=== PATIENT | female | born 1945 | race Two or more races ===

== ENCOUNTER 2020-08-08 15:50 | Inpatient (IN) | payer OTHER ==
[~2020-08-08] VITALS: Ht 167.6 cm; Wt 55.6 kg
[2020-08-08] MEDS ORDERED: PANTOPRAZOLE 40 MG/10 ML VIAL INJ IV STA (15:57)
[2020-08-08] MEDS ORDERED: SODIUM CHLORIDE 0.9% 500 ML IVB ONE (16:00)
[2020-08-08 16:56] LABS: Basophils # (auto) 0 10 ^3/uL (0-0.2); Eosinophils # (auto) 0.1 10 ^3/uL (0-0.8); Hematocrit 37.4 % (36.0-46.0); Mean Corpuscular Hemoglobin 35.3 pg (28.0-32.0); Monocytes # (auto) 0.6 10 ^3/uL (0-1.3)
[2020-08-08 16:58] LABS: Basophils % (auto) 0.3 % (0.0-2.0); Eosinophils % (auto) 1.5 % (0.0-7.0); Hemoglobin 12.8 g/dL (12.2-16.2); Lymphocytes # (auto) 0.6 10 ^3/uL (0.4-5.4); Lymphocytes % (auto) 8.3 % (10.0-50.0); Mean Corpuscular Hgb Conc. 34.2 g/dL (32.0-36.0); Mean Corpuscular Volume 103.1 fL (80.0-100.0); Monocytes % (auto) 8.1 % (0.0-12.0); Neutrophils # (auto) 5.5 10 ^3/uL (1.6-8.6); Neutrophils % (auto) 81.8 % (37.0-80.0); Platelet Count (auto) 95 10^3/uL (140-450); Red Blood Cells 3.63 10^6/uL (4.0-5.20); Red Cell Distribution Width 15.3 % (11.8-14.3); White Blood Cell 6.8 10^3/uL (4.4-10.8)
[2020-08-08 17:07] LABS: Calcium 8.5 mg/dL (8.5-10.1)
[2020-08-08 17:10] LABS: Albumin 3.1 g/dL (3.4-5.0); BUN/Creatinine Ratio 16.4
[2020-08-08 17:23] LABS: Bilirubin, Total 0.9 mg/dL (0.2-1.0); Total Protein 6.3 g/dL (6.4-8.2)
[2020-08-08] MEDS ORDERED: metroNIDAZOLE 500MG/100ML 100 ML IV ONE (19:30)
[2020-08-08] MEDS ORDERED: POTASSIUM CHL 20MEQ/100ML 100 ML IV ONE (19:30)
[2020-08-08] MEDS ORDERED: ONDANSETRON HCL 4 MG/2 ML VIAL IV PRN (21:00)
[2020-08-08] MEDS ORDERED: ACETAMINOPHEN 325 MG TAB PO PRN (21:00)
[2020-08-08] MEDS ORDERED: DEXTROSE (50%) 50ML SYRG IV PRN (21:00)
[2020-08-08] MEDS ORDERED: MORPHINE SULF INJ 2 MG/ML SYRINGE 1ML IV PRN (21:00)
[2020-08-08] MEDS ORDERED: SODIUM CHLORIDE 0.9% 1,000 ML IV SCH (21:00)
[2020-08-08] MEDS ORDERED: NITROGLYCERIN 0.4 MG SL TAB SL PRN (21:00)
[2020-08-08] MEDS: INSULIN LANTUS (GLARGINE) 1 /0.01ml (100units/ml) SC SCH (22:00)
[2020-08-08] MEDS: metroNIDAZOLE 500MG/100ML 100 ML IV SCH (22:00)
[2020-08-08] MEDS: InsuLIN REG 1unit/0.01ml Soln (100units/ml) SC SCH (22:00)
[2020-08-08] MEDS ORDERED: GLIP10TA9 PO (22:18)
[2020-08-08] MEDS ORDERED: APIX5TAB PO (22:18)
[2020-08-08] MEDS ORDERED: METF-370 PO (22:18)
[2020-08-08] MEDS: ACCU-CHEK COMFORT CURVE STRIP VI SCH (22:29)
[2020-08-08 23:00] VITALS: BP 117/78
[2020-08-08 23:08] LABS: INR 1.06 (0.9-1.15); Partial Thromboplastin Time 37.7 sec (23.0-31.2)
[2020-08-08] MEDS: MORPHINE SULF INJ 2 MG/ML SYRINGE 1ML IV PRN (23:44)
[2020-08-08] MEDS: cefTRIAXone 1GM/50ML D5W 50 ML IV SCH (23:45)
[2020-08-09 05:00] VITALS: BP 120/67
[2020-08-09] MEDS: metroNIDAZOLE 500MG/100ML 100 ML IV SCH (05:50)
[2020-08-09] MEDS: ACCU-CHEK COMFORT CURVE STRIP VI SCH ×4 (05:58→23:50)
[2020-08-09] MEDS: INSULIN LANTUS (GLARGINE) 1 /0.01ml (100units/ml) SC SCH (05:59)
[2020-08-09] MEDS: InsuLIN REG 1unit/0.01ml Soln (100units/ml) SC SCH ×5 (06:00→23:51)
[2020-08-09 06:11] LABS: Basophils # (auto) 0 10 ^3/uL (0-0.2); Eosinophils # (auto) 0.2 10 ^3/uL (0-0.8); Lymphocytes # (auto) 0.6 10 ^3/uL (0.4-5.4); Monocytes # (auto) 0.7 10 ^3/uL (0-1.3); Monocytes % (auto) 10.1 % (0.0-12.0); Neutrophils # (auto) 5.3 10 ^3/uL (1.6-8.6); White Blood Cell 6.8 10^3/uL (4.4-10.8)
[2020-08-09 06:16] LABS: Basophils % (auto) 0.4 % (0.0-2.0); Eosinophils % (auto) 2.2 % (0.0-7.0); Hematocrit 34.2 % (36.0-46.0); Hemoglobin 11.8 g/dL (12.2-16.2); Lymphocytes % (auto) 9.6 % (10.0-50.0); Mean Corpuscular Hemoglobin 35.6 pg (28.0-32.0); Mean Corpuscular Hgb Conc. 34.6 g/dL (32.0-36.0); Neutrophils % (auto) 77.7 % (37.0-80.0); Nucleated Red Blood Cells % 0.1 %; Platelet Count (auto) 102 10^3/uL (140-450); Red Blood Cells 3.32 10^6/uL (4.0-5.20); Red Cell Distribution Width 15.9 % (11.8-14.3)
[2020-08-09] MEDS ORDERED: D5W/SOD CHLO 0.9% 1,000 ML IV SCH (06:30)
[2020-08-09 06:33] LABS: Potassium 3.2 mmol/L (3.5-5.1)
[2020-08-09 06:43] LABS: Albumin 3.2 g/dL (3.4-5.0); Bilirubin, Total 0.7 mg/dL (0.2-1.0); Calcium 7.8 mg/dL (8.5-10.1)
[2020-08-09] MEDS ORDERED: LIDOCAINE HCL 2% TOP JELLY 5ML TOP ONE (07:30)
[2020-08-09] MEDS: MORPHINE SULF INJ 2 MG/ML SYRINGE 1ML IV PRN (07:36)
[2020-08-09 08:00] VITALS: BP 111/69
[2020-08-09 08:18] LABS: Urine Bacteria NONE SEEN /hpf (None Seen); Urine Blood 3+ /uL (Negative); Urine Specific Gravity 1.017 (1.001-1.035)
[2020-08-09 08:22] LABS: Urine WBC 2 /hpf (0 - 5)
[2020-08-09 09:00] VITALS: BP 111/63
[2020-08-09] MEDS: PANTOPRAZOLE 40 MG/10 ML VIAL INJ IV SCH (09:35)
[2020-08-09] MEDS: cefTRIAXone 1GM/50ML D5W 50 ML IV SCH (09:35)
[2020-08-09] MEDS ORDERED: APIXABAN 5 MG TAB PO SCH (10:00)
[2020-08-09] MEDS: D5W/SOD CHLO 0.9% 1,000 ML IV SCH ×2 (10:19→20:00)
[2020-08-09] MEDS ORDERED: DEXTROSE (50%) 50ML SYRG IV PRN (12:30)
[2020-08-09] MEDS ORDERED: POTASSIUM CHLORIDE 40 MEQ, LIDOCAINE 1% (LOCAL ANESTH.) 4 ML in SODIUM CHL 0.9% 100 ML IV ONE (12:30)
[2020-08-09 12:32] VITALS: BP 116/72
[2020-08-09] MEDS ORDERED: PIPERACILLIN-TAZOB 3.375GM 100 ML IV SCH (14:00)
[2020-08-09] MEDS ORDERED: LEVOTHYROXINE SODIUM 100 MCG/5 ML INJ IV ONE (15:00)
[2020-08-09] MEDS ORDERED: DOCUSATE SOD 100 MG CAP PO PRN (16:15)
[2020-08-09 17:03] VITALS: BP 115/70
[2020-08-09] MEDS: PIPERACILLIN-TAZOB 2.25GM 50 ML IV SCH (21:29)
[2020-08-09 22:41] VITALS: BP 110/59
[2020-08-10] MEDS: D5W/SOD CHLO 0.9% 1,000 ML IV SCH ×2 (05:36→16:16)
[2020-08-10] MEDS: PIPERACILLIN-TAZOB 2.25GM 50 ML IV SCH ×3 (05:36→20:59)
[2020-08-10] MEDS: ACCU-CHEK COMFORT CURVE STRIP VI SCH ×4 (05:44→23:24)
[2020-08-10] MEDS: InsuLIN REG 1unit/0.01ml Soln (100units/ml) SC SCH ×4 (05:47→23:27)
[2020-08-10 05:48] VITALS: BP 118/64
[2020-08-10 05:58] LABS: Basophils # (auto) 0 10 ^3/uL (0-0.2); Basophils % (auto) 0.4 % (0.0-2.0); Eosinophils # (auto) 0.2 10 ^3/uL (0-0.8); Monocytes # (auto) 0.6 10 ^3/uL (0-1.3); Neutrophils # (auto) 4.2 10 ^3/uL (1.6-8.6)
[2020-08-10 06:02] LABS: Eosinophils % (auto) 3.9 % (0.0-7.0); Hematocrit 35.8 % (36.0-46.0); Hemoglobin 12.4 g/dL (12.2-16.2); Lymphocytes # (auto) 0.7 10 ^3/uL (0.4-5.4); Lymphocytes % (auto) 11.3 % (10.0-50.0); Mean Corpuscular Hemoglobin 35.6 pg (28.0-32.0); Mean Corpuscular Hgb Conc. 34.7 g/dL (32.0-36.0); Mean Corpuscular Volume 102.6 fL (80.0-100.0); Monocytes % (auto) 10.6 % (0.0-12.0); Neutrophils % (auto) 73.8 % (37.0-80.0); Platelet Count (auto) 102 10^3/uL (140-450); Red Blood Cells 3.49 10^6/uL (4.0-5.20); Red Cell Distribution Width 15.3 % (11.8-14.3); White Blood Cell 5.8 10^3/uL (4.4-10.8)
[2020-08-10 06:12] LABS: Calcium 8.2 mg/dL (8.5-10.1)
[2020-08-10 06:18] LABS: Albumin 2.6 g/dL (3.4-5.0); BUN/Creatinine Ratio 15.5; Bilirubin, Total 0.5 mg/dL (0.2-1.0); Total Protein 5.8 g/dL (6.4-8.2)
[2020-08-10 06:28] LABS: Potassium 2.9 mmol/L (3.5-5.1)
[2020-08-10] MEDS ORDERED: POTASSIUM EFFERVESENT TAB 25 MEQ PO ONE (08:30)
[2020-08-10 09:09] VITALS: BP 109/59
[2020-08-10] MEDS: LEVOTHYROXINE SODIUM 100 MCG/5 ML INJ IV SCH (09:50)
[2020-08-10] MEDS: PANTOPRAZOLE 40 MG/10 ML VIAL INJ IV SCH (09:50)
[2020-08-10 13:00] VITALS: BP 123/85
[2020-08-10 17:00] VITALS: BP 111/61
[2020-08-10] MEDS: MORPHINE SULF INJ 2 MG/ML SYRINGE 1ML IV PRN (20:59)
[2020-08-10 21:46] VITALS: BP 124/74
[2020-08-11] MEDS: PIPERACILLIN-TAZOB 2.25GM 50 ML IV SCH ×4 (01:29→21:38)
[2020-08-11] MEDS: D5W/SOD CHLO 0.9% 1,000 ML IV SCH (01:29)
[2020-08-11 05:19] VITALS: BP 118/69
[2020-08-11] MEDS: ACCU-CHEK COMFORT CURVE STRIP VI SCH ×3 (05:41→17:26)
[2020-08-11] MEDS: MORPHINE SULF INJ 2 MG/ML SYRINGE 1ML IV PRN (05:42)
[2020-08-11] MEDS: InsuLIN REG 1unit/0.01ml Soln (100units/ml) SC SCH ×3 (05:56→17:26)
[2020-08-11 08:00] VITALS: BP 117/72
[2020-08-11 08:36] VITALS: BP 117/72
[2020-08-11] MEDS: LEVOTHYROXINE SODIUM 100 MCG/5 ML INJ IV SCH (09:56)
[2020-08-11] MEDS: PANTOPRAZOLE 40 MG/10 ML VIAL INJ IV SCH (09:56)
[2020-08-11 13:00] VITALS: BP 109/62
[2020-08-11 17:00] VITALS: BP 105/82
[2020-08-11 22:00] VITALS: BP 102/66
[2020-08-12] MEDS: ACCU-CHEK COMFORT CURVE STRIP VI SCH ×4 (00:15→18:08)
[2020-08-12] MEDS: InsuLIN REG 1unit/0.01ml Soln (100units/ml) SC SCH ×4 (00:15→18:11)
[2020-08-12] MEDS: PIPERACILLIN-TAZOB 2.25GM 50 ML IV SCH ×4 (02:34→21:26)
[2020-08-12 05:00] VITALS: BP 113/72
[2020-08-12] MEDS: LEVOTHYROXINE SODIUM 100 MCG/5 ML INJ IV SCH (08:23)
[2020-08-12] MEDS: PANTOPRAZOLE 40 MG/10 ML VIAL INJ IV SCH (08:23)
[2020-08-12 09:00] VITALS: BP 116/71
[2020-08-12 13:00] VITALS: BP 121/60
[2020-08-12 17:23] VITALS: BP 111/65
[2020-08-12 21:49] VITALS: BP 116/74
[2020-08-13] MEDS: PIPERACILLIN-TAZOB 2.25GM 50 ML IV SCH ×2 (01:26→08:23)
[2020-08-13 05:23] VITALS: BP 135/83
[2020-08-13] MEDS: InsuLIN REG 1unit/0.01ml Soln (100units/ml) SC SCH ×4 (06:00→17:41)
[2020-08-13] MEDS: ACCU-CHEK COMFORT CURVE STRIP VI SCH ×4 (06:00→17:32)
[2020-08-13 09:00] VITALS: BP 136/62
[2020-08-13] MEDS: PANTOPRAZOLE 40 MG/10 ML VIAL INJ IV SCH (09:36)
[2020-08-13] MEDS: LEVOTHYROXINE SODIUM 100 MCG/5 ML INJ IV SCH (09:36)
[2020-08-13 13:00] VITALS: BP 138/73
[2020-08-13] MEDS: PIPERACILLIN-TAZOB 3.375GM 100 ML IV SCH ×2 (13:16→17:32)
[2020-08-13 16:31] LABS: Urine Bacteria NONE SEEN /hpf (None Seen); Urine Blood TRACE /uL (Negative); Urine Mucus FEW (None Seen); Urine Specific Gravity 1.014 (1.001-1.035); Urine WBC 5 /hpf (0 - 5)
[2020-08-13 16:52] VITALS: BP 132/70
[2020-08-13 22:00] VITALS: BP 119/59
[2020-08-14] MEDS: PIPERACILLIN-TAZOB 3.375GM 100 ML IV SCH ×5 (02:06→23:05)
[2020-08-14 05:30] VITALS: BP 129/67
[2020-08-14] MEDS: ACCU-CHEK COMFORT CURVE STRIP VI SCH ×4 (06:00→18:06)
[2020-08-14] MEDS: InsuLIN REG 1unit/0.01ml Soln (100units/ml) SC SCH ×4 (06:00→18:07)
[2020-08-14 06:25] LABS: Basophils # (auto) 0 10 ^3/uL (0-0.2); Basophils % (auto) 0.3 % (0.0-2.0); Eosinophils # (auto) 0.1 10 ^3/uL (0-0.8); Eosinophils % (auto) 1.8 % (0.0-7.0); Lymphocytes # (auto) 1.1 10 ^3/uL (0.4-5.4); Nucleated Red Blood Cells % 0.1 %
[2020-08-14 06:27] LABS: Hematocrit 34.1 % (36.0-46.0); Hemoglobin 11.9 g/dL (12.2-16.2); Lymphocytes % (auto) 15.3 % (10.0-50.0); Mean Corpuscular Hemoglobin 34.8 pg (28.0-32.0); Mean Corpuscular Hgb Conc. 34.9 g/dL (32.0-36.0); Mean Corpuscular Volume 99.6 fL (80.0-100.0); Monocytes # (auto) 0.5 10 ^3/uL (0-1.3); Monocytes % (auto) 7.3 % (0.0-12.0); Neutrophils # (auto) 5.4 10 ^3/uL (1.6-8.6); Neutrophils % (auto) 75.3 % (37.0-80.0); Platelet Count (auto) 136 10^3/uL (140-450); Red Blood Cells 3.43 10^6/uL (4.0-5.20); Red Cell Distribution Width 15.1 % (11.8-14.3); White Blood Cell 7.2 10^3/uL (4.4-10.8)
[2020-08-14 06:48] LABS: Albumin 2.7 g/dL (3.4-5.0); BUN/Creatinine Ratio 11.3; Bilirubin, Total 0.6 mg/dL (0.2-1.0); Calcium 7.6 mg/dL (8.5-10.1); Total Protein 5.8 g/dL (6.4-8.2)
[2020-08-14 07:37] LABS: Potassium 1.8 mmol/L (3.5-5.1)
[2020-08-14] MEDS ORDERED: POTASSIUM CHL 20 Meq TABLET PO ONE ×2 (08:00→16:00)
[2020-08-14] MEDS ORDERED: POTASSIUM EFFERVESENT TAB 25 MEQ PO ONE (08:15)
[2020-08-14] MEDS ORDERED: POTASSIUM CHL 20MEQ/100ML 100 ML IV ONE (08:15)
[2020-08-14 08:46] VITALS: BP 163/88
[2020-08-14] MEDS: PANTOPRAZOLE 40 MG/10 ML VIAL INJ IV SCH (09:12)
[2020-08-14] MEDS: LEVOTHYROXINE SODIUM 100 MCG/5 ML INJ IV SCH (09:12)
[2020-08-14] MEDS: MORPHINE SULF INJ 2 MG/ML SYRINGE 1ML IV PRN (09:12)
[2020-08-14 13:00] VITALS: BP 126/80
[2020-08-14] MEDS ORDERED: MAGNESIUM OXIDE 400 MG TAB PO ONE (15:00)
[2020-08-14] MEDS: MAGNESIUM SULFATE 1GM/100ML 100 ML IV SCH ×2 (15:29→16:38)
[2020-08-14 17:00] VITALS: BP 139/81
[2020-08-14 22:00] VITALS: BP 114/63
[2020-08-15] MEDS: PIPERACILLIN-TAZOB 3.375GM 100 ML IV SCH ×4 (05:31→23:31)
[2020-08-15] MEDS: InsuLIN REG 1unit/0.01ml Soln (100units/ml) SC SCH ×5 (05:32→23:42)
[2020-08-15] MEDS: ACCU-CHEK COMFORT CURVE STRIP VI SCH ×5 (06:20→23:42)
[2020-08-15 06:58] LABS: Calcium 7.7 mg/dL (8.5-10.1); Magnesium 2.6 mg/dL (1.6-2.6)
[2020-08-15 07:00] LABS: Potassium 2.8 mmol/L (3.5-5.1)
[2020-08-15] MEDS ORDERED: POTASSIUM CHL 20 Meq TABLET PO ONE ×3 (07:30→17:00)
[2020-08-15 08:00] VITALS: BP 141/92
[2020-08-15 08:16] LABS: BUN/Creatinine Ratio 10.4
[2020-08-15] MEDS ORDERED: POTASSIUM EFFERVESENT TAB 25 MEQ PO ONE (09:15)
[2020-08-15] MEDS: POTASSIUM CHLORIDE 40 MEQ, LIDOCAINE 1% (LOCAL ANESTH.) 4 ML in SODIUM CHL 0.9% 100 ML IV ONE ×2 (09:15→09:57)
[2020-08-15] MEDS: MORPHINE SULF INJ 2 MG/ML SYRINGE 1ML IV PRN ×2 (09:55→21:18)
[2020-08-15] MEDS: PANTOPRAZOLE 40 MG/10 ML VIAL INJ IV SCH (09:55)
[2020-08-15] MEDS: MAGNESIUM OXIDE 400 MG TAB PO SCH (09:55)
[2020-08-15] MEDS ORDERED: SPIRONOLACTONE 25 MG TAB PO SCH (10:00)
[2020-08-15] MEDS: LEVOTHYROXINE SODIUM 100 MCG/5 ML INJ IV SCH (10:00)
[2020-08-15 11:12] LABS: Urine Bacteria FEW /hpf (None Seen); Urine Blood 3+ /uL (Negative); Urine Mucus FEW (None Seen); Urine Specific Gravity 1.016 (1.001-1.035); Urine WBC 76 /hpf (0 - 5)
[2020-08-15 11:30] LABS: Creatinine, Urine 56 mg/dL (30.0-125.0); Sodium Urine 75 mmol/L (40-220)
[2020-08-15] MEDS ORDERED: METR500T PO (12:35)
[2020-08-15] MEDS ORDERED: SPIR25TA88 PO ×2 (12:35→17:40)
[2020-08-15] MEDS ORDERED: LEVO150T68 PO (12:35)
[2020-08-15] MEDS ORDERED: MAGN400T21 PO (12:35)
[2020-08-15] MEDS ORDERED: APIX5TAB PO (12:35)
[2020-08-15] MEDS ORDERED: LEVO500T21 PO (12:35)
[2020-08-15] MEDS ORDERED: POTA10TA32 PO (12:35)
[2020-08-15 13:00] VITALS: BP 111/63
[2020-08-15 17:00] VITALS: BP 113/84
[2020-08-15] MEDS ORDERED: SODIUM CHLORIDE 0.9% 500 ML IV ONE (21:15)
[2020-08-15] MEDS ORDERED: FUROSEMIDE 40 MG/4 ML VIAL IV ONE (21:15)
[2020-08-15 22:00] VITALS: BP 117/81
[2020-08-16] MEDS: MORPHINE SULF INJ 2 MG/ML SYRINGE 1ML IV PRN (03:47)
[2020-08-16 05:00] VITALS: BP 139/83
[2020-08-16] MEDS: InsuLIN REG 1unit/0.01ml Soln (100units/ml) SC SCH ×3 (05:56→18:00)
[2020-08-16] MEDS: PIPERACILLIN-TAZOB 3.375GM 100 ML IV SCH ×2 (05:57→12:00)
[2020-08-16] MEDS: ACCU-CHEK COMFORT CURVE STRIP VI SCH ×3 (05:57→18:00)
[2020-08-16 07:24] LABS: Monocytes % (auto) 8.4 % (0.0-12.0); Neutrophils # (auto) 9.6 10 ^3/uL (1.6-8.6); White Blood Cell 11.4 10^3/uL (4.4-10.8)
[2020-08-16 07:26] LABS: Basophils # (auto) 0 10 ^3/uL (0-0.2); Basophils % (auto) 0.4 % (0.0-2.0); Eosinophils # (auto) 0.2 10 ^3/uL (0-0.8); Eosinophils % (auto) 1.4 % (0.0-7.0); Hematocrit 38.2 % (36.0-46.0); Hemoglobin 12.8 g/dL (12.2-16.2); Lymphocytes # (auto) 0.6 10 ^3/uL (0.4-5.4); Lymphocytes % (auto) 5.6 % (10.0-50.0); Mean Corpuscular Hemoglobin 34.4 pg (28.0-32.0); Mean Corpuscular Hgb Conc. 33.4 g/dL (32.0-36.0); Neutrophils % (auto) 84.2 % (37.0-80.0); Platelet Count (auto) 138 10^3/uL (140-450); Red Blood Cells 3.71 10^6/uL (4.0-5.20); Red Cell Distribution Width 15.7 % (11.8-14.3)
[2020-08-16 07:39] LABS: BUN/Creatinine Ratio 8.7; Calcium 8.4 mg/dL (8.5-10.1); Potassium 5.3 mmol/L (3.5-5.1)
[2020-08-16 09:00] VITALS: BP 100/54
[2020-08-16] MEDS ORDERED: SODIUM BICARBONATE 8.4 % INJ 50ML VIAL IV ONE (09:15)
[2020-08-16] MEDS: MAGNESIUM OXIDE 400 MG TAB PO SCH (10:50)
[2020-08-16] MEDS: ENOXAPARIN SOD 60 MG/0.6 ML SYRINGE SC SCH (10:50)
[2020-08-16] MEDS: LEVOTHYROXINE SODIUM 100 MCG/5 ML INJ IV SCH (10:50)
[2020-08-16] MEDS: PANTOPRAZOLE 40 MG/10 ML VIAL INJ IV SCH (10:50)
[2020-08-16] MEDS: METOPROLOL TARTRATE 25 MG TAB PO SCH ×2 (10:51→21:39)
[2020-08-16 13:00] VITALS: BP 114/59
[2020-08-16] MEDS ORDERED: cefTRIAXone 1GM/50ML D5W 50 ML IV ONE (13:45)
[2020-08-16] MEDS: metroNIDAZOLE 500MG/100ML 100 ML IV SCH ×2 (16:36→21:39)
[2020-08-16 17:00] VITALS: BP 109/67
[2020-08-16] MEDS ORDERED: LORazepam 2MG/ML-1ML VIAL IV PRN (20:00)
[2020-08-16] MEDS: LACTULOSE 20Gm/30ML SOLN PO SCH (21:39)
[2020-08-16 22:00] VITALS: BP 113/67
[2020-08-17] MEDS: ACCU-CHEK COMFORT CURVE STRIP VI SCH ×4 (00:22→18:14)
[2020-08-17 05:00] VITALS: BP 115/85
[2020-08-17] MEDS: metroNIDAZOLE 500MG/100ML 100 ML IV SCH ×3 (05:48→22:10)
[2020-08-17] MEDS: InsuLIN REG 1unit/0.01ml Soln (100units/ml) SC SCH ×4 (06:00→18:00)
[2020-08-17 06:48] LABS: Basophils # (auto) 0.1 10 ^3/uL (0-0.2); Basophils % (auto) 0.6 % (0.0-2.0); Eosinophils # (auto) 0.2 10 ^3/uL (0-0.8); Eosinophils % (auto) 2.6 % (0.0-7.0); Hemoglobin 12.5 g/dL (12.2-16.2); Monocytes # (auto) 0.6 10 ^3/uL (0-1.3)
[2020-08-17 06:50] LABS: Hematocrit 36.6 % (36.0-46.0); Lymphocytes # (auto) 0.9 10 ^3/uL (0.4-5.4); Lymphocytes % (auto) 10.5 % (10.0-50.0); Mean Corpuscular Hemoglobin 35.3 pg (28.0-32.0); Mean Corpuscular Hgb Conc. 34.2 g/dL (32.0-36.0); Mean Corpuscular Volume 103.2 fL (80.0-100.0); Monocytes % (auto) 7.2 % (0.0-12.0); Neutrophils # (auto) 6.7 10 ^3/uL (1.6-8.6); Neutrophils % (auto) 79.1 % (37.0-80.0); Nucleated Red Blood Cells % 0.1 %; Platelet Count (auto) 140 10^3/uL (140-450); Red Blood Cells 3.54 10^6/uL (4.0-5.20); Red Cell Distribution Width 15.9 % (11.8-14.3); White Blood Cell 8.4 10^3/uL (4.4-10.8)
[2020-08-17 07:06] LABS: BUN/Creatinine Ratio 10.8; Calcium 8.4 mg/dL (8.5-10.1); Potassium 4.2 mmol/L (3.5-5.1)
[2020-08-17 08:00] VITALS: BP 111/61
[2020-08-17] MEDS: LACTULOSE 20Gm/30ML SOLN PO SCH ×2 (09:35→22:10)
[2020-08-17] MEDS: ENOXAPARIN SOD 60 MG/0.6 ML SYRINGE SC SCH (09:36)
[2020-08-17] MEDS: cefTRIAXone 1GM/50ML D5W 50 ML IV SCH (09:36)
[2020-08-17] MEDS: MAGNESIUM OXIDE 400 MG TAB PO SCH (09:36)
[2020-08-17] MEDS: PANTOPRAZOLE 40 MG/10 ML VIAL INJ IV SCH (09:36)
[2020-08-17] MEDS: LEVOTHYROXINE SODIUM 100 MCG/5 ML INJ IV SCH (09:37)
[2020-08-17] MEDS: METOPROLOL TARTRATE 25 MG TAB PO SCH ×2 (09:37→22:10)
[2020-08-17] MEDS ORDERED: SODIUM CHLORIDE 0.9% 1,000 ML IV SCH (11:45)
[2020-08-17] MEDS: SOD CHL 0.45% 1,000 ML IV SCH (11:45)
[2020-08-17 13:02] VITALS: BP 142/71
[2020-08-17] MEDS ORDERED: GASTROGRAFIN 30 ML SOL ONE (14:51)
[2020-08-17] MEDS: MORPHINE SULF INJ 2 MG/ML SYRINGE 1ML IV PRN ×2 (16:49→22:10)
[2020-08-17 17:14] VITALS: BP 117/72
[2020-08-17 22:00] VITALS: BP 140/85
[2020-08-17] MEDS: GABAPENTIN 100 MG CAP PO SCH (22:10)
[2020-08-18] MEDS: SOD CHL 0.45% 1,000 ML IV SCH (01:05)
[2020-08-18 05:00] VITALS: BP 104/63
[2020-08-18] MEDS: ACCU-CHEK COMFORT CURVE STRIP VI SCH ×4 (05:41→17:28)
[2020-08-18] MEDS: InsuLIN REG 1unit/0.01ml Soln (100units/ml) SC SCH ×4 (05:41→17:28)
[2020-08-18] MEDS: metroNIDAZOLE 500MG/100ML 100 ML IV SCH ×3 (05:52→22:00)
[2020-08-18 07:06] LABS: Magnesium 2.4 mg/dL (1.6-2.6)
[2020-08-18 08:33] VITALS: BP 109/70
[2020-08-18] MEDS: MAGNESIUM OXIDE 400 MG TAB PO SCH (09:49)
[2020-08-18] MEDS: ASPirin 325 MG TAB PO SCH (09:49)
[2020-08-18] MEDS: PANTOPRAZOLE 40 MG/10 ML VIAL INJ IV SCH (09:50)
[2020-08-18] MEDS: LEVOTHYROXINE SODIUM 100 MCG/5 ML INJ IV SCH (09:50)
[2020-08-18] MEDS: ENOXAPARIN SOD 60 MG/0.6 ML SYRINGE SC SCH (09:50)
[2020-08-18] MEDS: GABAPENTIN 100 MG CAP PO SCH (09:50)
[2020-08-18] MEDS: METOPROLOL TARTRATE 25 MG TAB PO SCH ×2 (09:51→22:00)
[2020-08-18] MEDS: cefTRIAXone 1GM/50ML D5W 50 ML IV SCH (09:51)
[2020-08-18] MEDS: LACTULOSE 20Gm/30ML SOLN PO SCH (09:51)
[2020-08-18 13:12] VITALS: BP 120/70
[2020-08-18 17:00] VITALS: BP 130/69
[2020-08-18 21:00] VITALS: BP 106/59
[2020-08-19 05:00] VITALS: BP 100/59
[2020-08-19] MEDS: metroNIDAZOLE 500MG/100ML 100 ML IV SCH ×3 (05:52→22:58)
[2020-08-19] MEDS: ACCU-CHEK COMFORT CURVE STRIP VI SCH ×4 (05:53→17:40)
[2020-08-19] MEDS: InsuLIN REG 1unit/0.01ml Soln (100units/ml) SC SCH ×4 (05:53→17:40)
[2020-08-19 06:35] LABS: BUN/Creatinine Ratio 15.2; Calcium 7.9 mg/dL (8.5-10.1)
[2020-08-19 06:37] LABS: Potassium 2.9 mmol/L (3.5-5.1)
[2020-08-19] MEDS ORDERED: POTASSIUM CHL 20 Meq TABLET PO ONE ×2 (07:00→10:00)
[2020-08-19 08:00] VITALS: BP 106/64
[2020-08-19 09:00] VITALS: BP 106/64
[2020-08-19 09:35] LABS: Folate (Folic Acid) 14.03 ng/mL (5.38-24)
[2020-08-19] MEDS: cefTRIAXone 1GM/50ML D5W 50 ML IV SCH (09:57)
[2020-08-19] MEDS: ASPirin 325 MG TAB PO SCH (10:33)
[2020-08-19] MEDS: PANTOPRAZOLE 40 MG/10 ML VIAL INJ IV SCH (10:33)
[2020-08-19] MEDS: ENOXAPARIN SOD 60 MG/0.6 ML SYRINGE SC SCH ×2 (10:34→22:57)
[2020-08-19] MEDS: METOPROLOL TARTRATE 25 MG TAB PO SCH ×2 (10:34→22:58)
[2020-08-19 13:00] VITALS: BP 94/65
[2020-08-19 17:00] VITALS: BP 116/59
[2020-08-19 22:00] VITALS: BP 109/65
[2020-08-19] MEDS: MORPHINE SULF INJ 2 MG/ML SYRINGE 1ML IV PRN (23:47)
[2020-08-20] MEDS: InsuLIN REG 1unit/0.01ml Soln (100units/ml) SC SCH ×3 (00:43→11:47)
[2020-08-20 05:00] VITALS: BP 109/67
[2020-08-20] MEDS: metroNIDAZOLE 500MG/100ML 100 ML IV SCH ×2 (06:00→14:00)
[2020-08-20] MEDS: ACCU-CHEK COMFORT CURVE STRIP VI SCH ×3 (06:00→11:45)
[2020-08-20 06:40] LABS: Basophils # (auto) 0 10 ^3/uL (0-0.2); Eosinophils # (auto) 0.1 10 ^3/uL (0-0.8); Eosinophils % (auto) 0.9 % (0.0-7.0); Lymphocytes # (auto) 0.7 10 ^3/uL (0.4-5.4); Mean Corpuscular Hgb Conc. 34.7 g/dL (32.0-36.0); Monocytes # (auto) 0.7 10 ^3/uL (0-1.3); Platelet Count (auto) 142 10^3/uL (140-450)
[2020-08-20 06:47] LABS: Basophils % (auto) 0.4 % (0.0-2.0); Hematocrit 32.7 % (36.0-46.0); Hemoglobin 11.3 g/dL (12.2-16.2); Lymphocytes % (auto) 8.8 % (10.0-50.0); Mean Corpuscular Hemoglobin 35.2 pg (28.0-32.0); Mean Corpuscular Volume 101.2 fL (80.0-100.0); Monocytes % (auto) 9.4 % (0.0-12.0); Neutrophils # (auto) 6.4 10 ^3/uL (1.6-8.6); Neutrophils % (auto) 80.5 % (37.0-80.0); Red Blood Cells 3.23 10^6/uL (4.0-5.20); Red Cell Distribution Width 15.5 % (11.8-14.3); White Blood Cell 7.9 10^3/uL (4.4-10.8)
[2020-08-20 06:57] LABS: BUN/Creatinine Ratio 15.3; Calcium 7.9 mg/dL (8.5-10.1); Potassium 3.1 mmol/L (3.5-5.1)
[2020-08-20] MEDS ORDERED: LEVOTHYROXINE SODIUM 100 MCG TAB PO SCH (07:00)
[2020-08-20 08:00] VITALS: BP 107/60
[2020-08-20] MEDS: METOPROLOL TARTRATE 25 MG TAB PO SCH (09:18)
[2020-08-20] MEDS: ASPirin 325 MG TAB PO SCH (09:19)
[2020-08-20] MEDS: PANTOPRAZOLE 40 MG/10 ML VIAL INJ IV SCH (09:19)
[2020-08-20] MEDS: ENOXAPARIN SOD 60 MG/0.6 ML SYRINGE SC SCH (09:19)
[2020-08-20] MEDS: cefTRIAXone 1GM/50ML D5W 50 ML IV SCH (09:19)
[2020-08-20] MEDS: POTASSIUM CHL 20 Meq TABLET PO SCH ×2 (09:28→11:45)
[2020-08-20 09:34] VITALS: BP 107/60
[2020-08-20] MEDS ORDERED: APIX5TAB PO (12:40)
[2020-08-20] MEDS ORDERED: LEVO150T68 PO (12:40)
[2020-08-20] MEDS ORDERED: POTA-220 PO (12:40)
[2020-08-20] MEDS ORDERED: LEVO500T21 PO (12:40)
[2020-08-20 13:00] VITALS: BP 94/62
[2020-08-20 14:56] VITALS: BP 107/60
[2020-08-20 16:17] VITALS: BP 126/93
== END 2020-08-20 18:30 | disposition home health service (06) | DRG 391 ==
LOC: EDBD 15:50 → ER 15:50 → TELE 15:51 → TELE-WESTW 23:00
PROVIDERS: ADMIT Nurse Practitioner Family; ATTEND Internal Medicine
DX: K57.32 Diverticulitis of large intestine without perforation or abscess without bleeding (principal); N17.0 Acute kidney failure with tubular necrosis; E44.0 Moderate protein-calorie malnutrition; I13.0 Hypertensive heart and chronic kidney disease with heart failure and stage 1 through stage 4 chronic kidney disease, or unspecified chronic kidney disease; I48.19 Other persistent atrial fibrillation; I48.92 Unspecified atrial flutter; I50.42 Chronic combined systolic (congestive) and diastolic (congestive) heart failure; N13.6 Pyonephrosis; E03.9 Hypothyroidism, unspecified; E83.41 Hypermagnesemia; E87.5 Hyperkalemia; E11.22 Type 2 diabetes mellitus with diabetic chronic kidney disease; F17.200 Nicotine dependence, unspecified, uncomplicated; G89.4 Chronic pain syndrome; Z53.20 Procedure and treatment not carried out because of patient's decision for unspecified reasons; E87.6 Hypokalemia; E11.65 Type 2 diabetes mellitus with hyperglycemia; R31.0 Gross hematuria; K56.41 Fecal impaction; N18.30 Chronic kidney disease, stage 3 unspecified; E83.42 Hypomagnesemia; Z90.710 Acquired absence of both cervix and uterus; Z83.3 Family history of diabetes mellitus
CPT/HCPCS: 36415; 70450; 70551; 71045; 74176; 80048; 80053; 81001; 82088; 82378; 82533; 82550; 82565; 82570; 82607; 82746; 82962; 83036; 83690; 83735; 84132; 84133; 84244; 84300; 84439; 84443; 85025; 85610; 85730; 93005; 93306; 96365; 96368; 96375; 97110; 97116; 97163; 97530; C9113; G0378; J0696; J1815; J2001; J2405; J2543; J3480; J3490; J7042

== ENCOUNTER 2020-08-29 17:34 | Emergency (ER) | payer OTHER ==
[~2020-08-29] VITALS: Ht 152.4 cm; Wt 59.0 kg
[~2020-08-29 17:34] MED LIST: APIX5TAB PO; LEVO150T68 PO; LEVO500T21 PO; METF-370 PO; METR500T PO; POTA-220 PO
[2020-08-29 19:30] LABS: Basophils # (auto) 0.1 10 ^3/uL (0-0.2); Eosinophils # (auto) 0.2 10 ^3/uL (0-0.8); Hemoglobin 12.7 g/dL (12.2-16.2); Lymphocytes # (auto) 1.2 10 ^3/uL (0.4-5.4); Monocytes # (auto) 0.5 10 ^3/uL (0-1.3)
[2020-08-29 19:31] LABS: Basophils % (auto) 1.2 % (0.0-2.0); Eosinophils % (auto) 3.6 % (0.0-7.0); Hematocrit 37.1 % (36.0-46.0); Lymphocytes % (auto) 22.1 % (10.0-50.0); Mean Corpuscular Hgb Conc. 34.2 g/dL (32.0-36.0); Mean Corpuscular Volume 102.5 fL (80.0-100.0); Monocytes % (auto) 9.3 % (0.0-12.0); Neutrophils # (auto) 3.6 10 ^3/uL (1.6-8.6); Neutrophils % (auto) 63.8 % (37.0-80.0); Platelet Count (auto) 209 10^3/uL (140-450); Red Blood Cells 3.62 10^6/uL (4.0-5.20); White Blood Cell 5.6 10^3/uL (4.4-10.8)
[2020-08-29 19:38] LABS: INR 1.01 (0.9-1.15); Partial Thromboplastin Time 25.9 sec (23.0-31.2)
[2020-08-29 19:50] LABS: Alanine Aminotransferase 50 U/L (13-56); Albumin 3.4 g/dL (3.4-5.0); Amylase 57 U/L (25-115); Anion Gap 9 (5-15); Aspartate Aminotransferase 49 U/L (15-37); BUN/Creatinine Ratio 14.3; Blood Urea Nitrogen 8 mg/dL (7-18); Calcium 8.6 mg/dL (8.5-10.1); Carbon Dioxide 23 mmol/L (21-32); Chloride 108 mmol/L (98-107); GFR African American 136 mL/min; GFR Non-African American 113 mL/min; Glucose 144 mg/dL (74-106); Lipase 126 U/L (73-393); Magnesium 1.6 mg/dL (1.6-2.6); Potassium 3.4 mmol/L (3.5-5.1); Sodium 140 mmol/L (136-145)
[2020-08-29 19:56] LABS: Alkaline Phosphatase 172 U/L (45-117); Bilirubin, Total 0.4 mg/dL (0.2-1.0); Total Protein 7.3 g/dL (6.4-8.2)
[2020-08-30 00:42] LABS: Urine Bacteria NONE SEEN /hpf (None Seen); Urine Blood 3+ /uL (Negative); Urine Budding Yeast MANY /hpf (None Seen); Urine Mucus FEW (None Seen); Urine Specific Gravity 1.013 (1.001-1.035); Urine WBC 178 /hpf (0 - 5); Urine WBC Clumps PRESENT /hpf (None Seen)
[2020-08-30 01:00] VITALS: BP 138/70
== END 2020-08-30 01:51 | disposition home or self-care (01) ==
LOC: EDUNIT# 17:34 → EDBD 17:34 → ER 17:34
DX: N39.0 Urinary tract infection, site not specified (principal); K57.32 Diverticulitis of large intestine without perforation or abscess without bleeding; I48.91 Unspecified atrial fibrillation; E11.9 Type 2 diabetes mellitus without complications
CPT/HCPCS: 36415; 70450; 74176; 80053; 81001; 82150; 83605; 83690; 83735; 84484; 85025; 85610; 85730; 87040; 87086; 87088